=== PATIENT | female | born 1960 | race Caucasian/White ===

== ENCOUNTER 2018-05-16 09:13 | Emergency (ER) | payer OTHER ==
[2018-05-16 09:39] VITALS: BP 178/93
--- NOTE | 2018-05-16 09:55 | ER Document Report ---
ED Medical Screen (RME) - General Chief Complaint: Rectal Abscess Stated Complaint: POSSIBLE ABSCESS Time Seen by Provider: 05/16/18 09:51 TRAVEL OUTSIDE OF THE [place] IN LAST 30 DAYS: No - HPI Notes: 05/16/18 09:54 Patient is a 57-year-old female that presents to the emergency department for chief complaint of rectal abscess or hemorrhoid. Patient has history of jeri- rectal abscess and thrombosed hemorrhoids. She has been having pain around her anus with swelling for the last few days. Yesterday got worse. She reports a fever of 100 at home. ROS: GENERAL: Denies fever of chills CV: Denies chest pain PHYSICAL EXAMINATION: GENERAL: Well-appearing, well-nourished and in no acute distress. HEAD: Atraumatic, normocephalic. EYES: Pupils equal round extraocular movements intact, conjunctiva are normal. ENT: Nares patent NECK: Normal range of motion LUNGS: No respiratory distress Musculoskeletal: Normal range of motion NEUROLOGICAL: Normal speech, normal gait. PSYCH: Normal mood, normal affect. MDM: Patient seen and examined for rapid initial assessment. Vital signs reviewed. A comprehensive ED assessment and evaluation of the patient, analysis of test results and completion of the medical decision making process will be conducted by additional ED providers. - Related Data Allergies/Adverse Reactions: moxifloxacin [From Avelox] Allergy (Verified 05/16/18 09:15) Physical Exam - Vital signs Vitals: Temp Pulse Resp BP Pulse Ox 98.4 F 88 20 178/93 H 95 05/16/18 09:38 05/16/18 09:38 05/16/18 09:38 05/16/18 09:38 05/16/18 09:38 Course - Vital Signs Vital signs: Temp Pulse Resp BP Pulse Ox 98.4 F 88 20 178/93 H 95 05/16/18 09:38 05/16/18 09:38 05/16/18 09:38 05/16/18 09:38 05/16/18 09:38
--- NOTE | 2018-05-16 10:36 | ER Document Report ---
ED GI Bleed / Rectal Pain - General Chief Complaint: Rectal Abscess Stated Complaint: POSSIBLE ABSCESS Time Seen by Provider: 05/16/18 09:51 Notes: This is a 57-year-old female to the emergency department with a 2-3 day history of rectal pain and swelling. Patient was not sure if she had a thrombosed hemorrhoid versus an abscess. Has had both in the past. This feels different. Has any fever or chills. Denies any abdominal pain. Denies any other major symptoms at this time. History of hypertension TRAVEL OUTSIDE OF THE [place] IN LAST 30 DAYS: No - HPI Onset: Yesterday Timing/Duration: Constant, Worse Quality of pain: Achy Severity of symptoms: Moderate Pain Level: 3 - Related Data Allergies/Adverse Reactions: moxifloxacin [From Avelox] Allergy (Verified 05/16/18 09:15) Past Medical History - General Information source: Patient - Social History Smoking Status: Never Smoker Chew tobacco use (# tins/day): No Frequency of alcohol use: None Drug Abuse: None Lives with: Spouse/Significant other Family History: Reviewed & Not Pertinent Patient has suicidal ideation: No Patient has homicidal ideation: No - Past Medical History Cardiac Medical History: Reports: Hx Hypertension Pulmonary Medical History: Reports: Hx Asthma Renal/ Medical History: Denies: Hx Peritoneal Dialysis Psychiatric Medical History: Reports: Hx Depression Past Surgical History: Reports: Hx Cholecystectomy, Hx Orthopedic Surgery - right knee Review of Systems - Review of Systems Notes: Constitutional: denies: Chills, Diaphoresis, Fever, Malaise, Weakness EENT: denies: Eye discharge, Blurred vision, Tearing, Double vision, Nose congestion, Nose discharge, Throat swelling, Mouth pain Cardiovascular: denies: Palpitations, Heart racing, Orthopnea, Dyspnea, Chest pain Respiratory: denies: Cough, Hurts to breathe, Wheezing, Shortness of breath Gastrointestinal: denies: Abdominal pain, Diarrhea, Nausea, Vomiting, Black stools, bright red blood in stool. Complaining of pain in the rectum with swelling perirectally Genitourinary: denies: Burning, Dysuria, Discharge, Frequency, Flank pain, Hematuria Musculoskeletal: denies: Joint pain, Joint swelling, Muscle pain, Muscle stiffness, back pain Hematologic/Lymphatic: denies: Anemia, Easy bleeding, Easy bruising, Blood clots Neurological/Psychological: denies: Confusion, Dementia, Depression, Loss of consciousness Skin: No lesions, no masses, no skin breakdown, no abscesses Physical Exam - Vital signs Vitals: Temp Pulse Resp BP Pulse Ox 98.4 F 88 20 178/93 H 95 05/16/18 09:38 05/16/18 09:38 05/16/18 09:38 05/16/18 09:38 05/16/18 09:38 Interpretation: Normal - General General appearance: Appears well, Alert - Respiratory Respiratory status: No respiratory distress Chest status: Nontender Breath sounds: Normal Chest palpation: Normal - Cardiovascular Rhythm: Regular Heart sounds: Normal auscultation Murmur: No - Abdominal Inspection: Normal Distension: No distension Bowel sounds: Normal Tenderness: Nontender Organomegaly: No organomegaly - Rectal Tenderness: Yes Hemorrhoids: External Notes: Patient has definite swelling of the rectal veins but there does not appear to be a large thrombosis. Seems fluctuant but does not appear to be an abscess. Does have some redundant perirectal tissue and scarring present. - Extremities General upper extremity: Normal inspection, Nontender, Normal color, Normal ROM , Normal temperature General lower extremity: Normal inspection, Nontender, Normal color, Normal ROM , Normal temperature, Normal weight bearing. No: Robbi's sign - Skin Skin Temperature: Warm Skin Moisture: Dry Skin Color: Normal Course - Re-evaluation Re-evalutation: 05/16/18 10:50 Has a very strange appearance and before doing any kind of vision or drainage or empiric antibiotics I would like surgery to see this patient as this could represent a malignancy. I have consulted Dr. Philip who will see patient shortly. 05/16/18 10:59 Dr. Philip has evaluated patient. Thinks more likely represents a partially thrombosed hemorrhoid but may have increased risk of bleeding so he will do the thrombectomy at this time. - Vital Signs Vital signs: Temp Pulse Resp BP Pulse Ox 98.4 F 88 20 178/93 H 95 05/16/18 09:38 05/16/18 09:38 05/16/18 09:48 05/16/18 09:38 05/16/18 09:38 Discharge - Discharge Clinical Impression: Thrombosed hemorrhoids Condition: Good Disposition: HOME, SELF-CARE Instructions: Incision of Thrombosed Hemorrhoids ([facility]) Prescriptions: Docusate Sodium [Colace 100 mg Capsule] 100 mg PO DAILY #30 capsule Hydrocortisone [Anusol-Hc] 30 gm RC BID #1 tube Forms: Return to Work Referrals: SULEIMAN PHILIP MD [[facility]RICK] - Follow up in 3-5 days
[2018-05-16] MEDS ORDERED: AMOXICILLIN TR/POT CLAVULANATE 500-125 MG TAB PO ONE (12:11)
--- NOTE | 2018-05-16 22:55 | OPERATIVE REPORT E ---
Operative Report NAME: RITO BALDWIN : 1960 AGE: 57Y DATE OF SURGERY: 05/16/2018 ROOM: PREOPERATIVE DIAGNOSIS: Perirectal abscess. POSTOPERATIVE DIAGNOSIS: Perirectal abscess. PROCEDURE: Incision and drainage of left perirectal abscess. SURGEON: SULEIMAN HERRING M.D. ANESTHESIA: Local. INDICATION FOR PROCEDURE: This is a 57-year-old female who complained of pains along the perirectal area for the past day or 2. She went to the ED and she had discoloration of external hemorrhoid and thought patient had a possible thrombosed hemorrhoid. However, this was noted to be quite soft. DESCRIPTION OF PROCEDURE: The patient was placed in a left lateral decubitus position. The perianal area was then prepped and draped in the usual sterile fashion. Local anesthesia infiltrated along the left perirectal area and a small incision made with an 11 blade. There was a gush of pus noted and this was then further dilated with a hemostat and more pus extruded out. Cultures were then obtained. The incision was enlarged to about 1.5 cm long and the wound subsequently packed with diluted Betadine soaked small gauze. The patient tolerated the procedure well. The patient advised to start sitz bath tomorrow and she can take the packing out. 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 She claims she had an abscess in the perirectal area about 3 years ago maybe not in the same site. At any rate the patient was discharged by ER physician on p.o. Cipro for the next week. The patient can be followed up in the surgical clinic in about a week. DICTATING PHYSICIAN: SULEIMAN HERRING M.D. [id number] PHY#: [id number] ID: [id number] JOB#: [id number] ACCT: [id number] cc:SULEIMAN HERRING M.D. >
== END 2018-05-16 12:38 | disposition home or self-care (01) ==
LOC: ER 09:13
DX: K61.1 Rectal abscess (principal); I10 Essential (primary) hypertension; J45.909 Unspecified asthma, uncomplicated; Z88.1 Allergy status to other antibiotic agents
CPT/HCPCS: 87070; 87075; 87077; 87186; 87205; 99284